=== PATIENT | female | born 2000 | race Two or more races ===

== ENCOUNTER 2020-12-06 17:07 | Emergency (ER) | payer OTHER ==
[~2020-12-06] VITALS: Ht 170.2 cm; Wt 58.1 kg
== END 2020-12-06 19:46 | disposition home or self-care (01) ==
LOC: ER 17:07
DX: S61.022A Laceration with foreign body of left thumb without damage to nail, initial encounter (principal); W26.0XXA Contact with knife, initial encounter; Y93.89 Activity, other specified; Y92.89 Other specified places as the place of occurrence of the external cause; Y99.8 Other external cause status